=== PATIENT | male | born 1985 | race Two or more races ===

== ENCOUNTER 2023-04-29 16:40 | Emergency (ER) | payer MEDICAID, OTHER ==
[~2023-04-29] VITALS: Ht 177.8 cm; Wt 114.7 kg
[2023-04-29 19:13] VITALS: BP 171/88; PULSE 70; RESP 18; TEMP 97.1; O2SAT 99
[2023-04-29] MEDS ORDERED: IBUP-1455 PO (21:38)
[2023-04-29] MEDS ORDERED: CYCL-837 PO (21:38)
== END 2023-04-29 21:57 | disposition home or self-care (01) ==
LOC: ER 16:40
DX: S80.01XA Contusion of right knee, initial encounter (principal); R07.89 Other chest pain; V86.99XA Unspecified occupant of other special all-terrain or other off-road motor vehicle injured in nontraffic accident, initial encounter; Y93.89 Activity, other specified; Y92.89 Other specified places as the place of occurrence of the external cause; Y99.8 Other external cause status
CPT/HCPCS: 71101